=== PATIENT | male | born 1960 | race Caucasian/White ===

== ENCOUNTER → 2016-09-24 | Outpatient (CLI) | payer BC | LOC: COL.LAB 12:58 | DX: Z01.812 Encounter for preprocedural laboratory examination (principal); M16.11 Unilateral primary osteoarthritis, right hip ==

== ENCOUNTER → 2021-01-06 | Outpatient (CLI) | payer BC | LOC: COL.RAD 12-23 14:00 | DX: E29.1 Testicular hypofunction (principal) | CPT/HCPCS: A9585 ==